=== PATIENT | male | born 1985 | race Caucasian/White ===

== ENCOUNTER 2017-08-26 17:30 | Emergency (ER) | payer MEDICAID ==
[~2017-08-26 17:30] MED LIST: Z.0.NO CURRENT MEDS
[2017-08-26 17:41] VITALS: BP 128/67; PULSE 120; RESP 16; TEMP 98.4; O2SAT 95
[2017-08-26] MEDS ORDERED: NALOXONE HCL 2 MG/2 ML VIAL IV PUSH ONE (18:00)
[2017-08-26] MEDS ORDERED: SODIUM CHLOR 0.9% 1000 ML INJ 1,000 ML IV ONE (18:00)
[2017-08-26 19:48] VITALS: BP 136/84; PULSE 128; RESP 16; O2SAT 98
--- NOTE | 2017-08-26 19:57 | PD ---
HPI Chief Complaint: OD/ Ingestion Time Seen by Provider: 17:47 Travel History International Travel<30 days: No Contact w/Intl Traveler<30days: No Traveled to known affect area: No History of Present Illness HPI 31-year-old man, presented to the front door obtunded, apneic, cyanotic, history of drug use. No further history immediately available. Upon resuscitation patient admits that he injected hydromorphone. History Past Medical History Medical History: Denies Significant Hx Past Surgical History Surgical History: No Previous Surgery Social History Alcohol Use: No Tobacco Use: Yes Allergies-Medications (Allergen,Severity, Reaction): Coded Allergies: No Known Allergies (Unverified , 10/13/12) Reported Meds & Prescriptions Reported Meds & Active Scripts Active No Active Prescriptions or Reported Medications Review of Systems Except as stated in HPI: all other systems reviewed are Neg Physical Exam Narrative GENERAL: 31-year-old male, cyanotic and apneic. SKIN:: Cyanotic. Scattered track burk. HEAD: Atraumatic. Normocephalic. EYES: Pupils equal and round. No scleral icterus. No injection or drainage. ENT: No nasal bleeding or discharge. Mucous membranes pink and moist. NECK: Trachea midline. No JVD. CARDIOVASCULAR: Regular rate and rhythm. No murmur appreciated. RESPIRATORY: No spontaneous respiratory effort. GASTROINTESTINAL: Abdomen soft, non-tender, nondistended. Hepatic and splenic margins not palpable. MUSCULOSKELETAL: No obvious deformities. No clubbing. No cyanosis. No edema. NEUROLOGICAL: Obtunded. No response to any stimulus. Data Data Last Documented VS Vital Signs Date Time Temp Pulse Resp B/P (MAP) Pulse Ox O2 Delivery O2 Flow Rate FiO2 08/26/17 19:48 128 16 136/84 (101) 98 Room Air 08/26/17 17:41 98.4 Orders Orders Naloxone Inj (Narcan Inj) (08/26/17 18:00) Sodium Chlor 0.9% 1000 Ml Inj (Ns 1000 M (08/26/17 18:00) MDM Medical Decision Making Medical Screen Exam Complete: Yes Emergency Medical Condition: Yes Differential Diagnosis Overdose, head injury, hypoglycemia, other Narrative Course Medical decision making 31-year-old man, presented obtunded, evidence of opiate use, IV access established, 2 g of IV naloxone given. Complete resolution of symptoms. Patient awake talking asymptomatic. No evidence of aspiration. Will be monitored for 4 hours in the ED. Procedures Procedure Narrative Peripheral IV access: Nursing staff unable to establish rapid IV access. Patient in need of IV Tylox and. Left neck was prepped according vaccine. Peripheral IV was placed in the right EJ with good effect. Patient tolerated well. Scripts No Active Prescriptions or Reported Meds Destin Cam MD Aug 26, 2017 19:57
--- NOTE | 2017-08-26 21:37 | PD ---
Physical Exam Date Seen by Provider: Aug 26, 2017 Time Seen by Provider: 21:35 Narrative 31-year-old male was found in front of the front door of triage unresponsive after doing Dilaudid overdose. He was brought in emergently and Narcan was given by the previous ER physician. This woke him up. The plan was to keep him here for 4 observation. Case was signed out to me to discharge him if he does fine with the observation period. Patient is awake and I am comfortable discharging him home at this point. Data Data Last Documented VS Orders Orders Naloxone Inj (Narcan Inj) (08/26/17 18:00) Sodium Chlor 0.9% 1000 Ml Inj (Ns 1000 M (08/26/17 18:00) Ed Discharge Order (08/26/17 21:35) MDM Supervised Visit with MAIA: No Diagnosis Primary Impression: Opiate overdose Qualified Codes: T40.601A - Poisoning by unspecified narcotics, accidental ( unintentional), initial encounter Additional Instruction: IV drug abuse is extremely dangerous. Please check himself into a rehabilitation as possible. Med/Other Pt SpecificInfo: No Change to Meds Scripts No Active Prescriptions or Reported Meds Disposition: 01 DISCHARGE HOME Condition: Stable Yordy Adams MD Aug 26, 2017 21:37
[2017-08-26 21:38] VITALS: BP 150/79; PULSE 115; RESP 18; O2SAT 97
== END 2017-08-26 22:26 | disposition home or self-care (01) ==
LOC: NEPC 17:30
DX: T40.2X1A Poisoning by other opioids, accidental (unintentional), initial encounter (principal); Z72.0 Tobacco use
CPT/HCPCS: 96374; 99284; J2310; J7030